=== PATIENT | female | born 1965 | race American Indian/Alaskan Native ===

== ENCOUNTER 2019-04-14 01:55 | Emergency (ER) | payer SELFPAY ==
--- NOTE | 2019-04-14 02:41 | XRay Report ---
RIGHT HIP 3 VIEWS INDICATION / CLINICAL INFORMATION: Right hip pain; twisted body/hips in attempt to not fall. COMPARISON: None available. FINDINGS: BONES / JOINT(S): The hip and SI joint spaces are well-maintained. There is no evidence of fracture o r dislocation. SOFT TISSUES: No significant abnormality. ADDITIONAL FINDINGS: None. IMPRESSION: No acute abnormality. Signer Name: Alessandro Newman MD Signed: 04/14/2019 2:37 AM Workstation Name: [id number]
--- NOTE | 2019-04-14 05:12 | Emergency Department Report ---
ED Lower Extremity HPI - General Chief Complaint: Extremity Injury, Lower Stated Complaint: RIGHT LEG PAIN Time Seen by Provider: 04/14/19 03:56 Source: patient Mode of arrival: Wheelchair Limitations: No Limitations - History of Present Illness Initial Comments: 53-year-old -[place] female presents to the emergency room complaining of right hip pain since Friday. Patient states that when she stood up while at the movie theater on Friday she twisted and had a near fall but was able to catch herself. Patient said at that time she twisted her right leg and heard a pop. Patient reports that she was able to ambulate but has gotten worse. Patient reports she has taken [id number] Tylenol which she reports has not helped much. Patient has no kidney disease no hypertension or diabetes. Has an allergy to penicillin. MD Complaint: hip injury Onset/Timin -: days(s) Injury: Hip: Right (twisted and heard something pop) Type of Injury: hyperflexion Place: street/outdoors (movie) Severity scale (0 -10): 10 Improves With: nothing Worsens With: weight bearing, movement Context: other (twisted) Associated Symptoms: snap/pop sensation - Related Data Previous Rx's Medication Instructions Recorded Last Taken Type Ibuprofen [Motrin 600 MG tab] 600 mg PO Q8H PRN #30 tablet 04/14/19 Unknown Rx traMADol [Ultram 50 MG tab] 50 mg PO Q6HR PRN #12 tablet 04/14/19 Unknown Rx Allergies Allergy/AdvReac Type Severity Reaction Status Date / Time Penicillins Allergy Hives Verified 04/14/19 02:01 ED Review of Systems ROS: Stated complaint: RIGHT LEG PAIN Other details as noted in HPI Comment: All other systems reviewed and negative ED Past Medical Hx - Past Medical History Previous Medical History?: No - Surgical History Past Surgical History?: Yes Hx Cholecystectomy: Yes - Social History Smoking Status: Never Smoker Substance Use Type: None - Medications Home Medications: Home Medications Medication Instructions Recorded Confirmed Last Taken Type Ibuprofen [Motrin 600 MG tab] 600 mg PO Q8H PRN #30 tablet 04/14/19 Unknown Rx traMADol [Ultram 50 MG tab] 50 mg PO Q6HR PRN #12 tablet 04/14/19 Unknown Rx ED Physical Exam - General Limitations: No Limitations General appearance: alert, in no apparent distress - Head Head exam: Present: atraumatic, normocephalic - Eye Eye exam: Present: normal appearance - ENT ENT exam: Present: mucous membranes moist - Expanded Lower Extremity Exam Right Hip exam: Absent: tenderness, swelling, laceration, ecchymosis, deformity, shortening, pelvic stability Upper Leg exam: Present: normal inspection, full ROM. Absent: tenderness, swelling Knee exam: Present: normal inspection, full ROM. Absent: tenderness Ankle exam: Present: swelling Foot/Toe exam: Present: normal inspection Neuro vascular tendon exam: Present: no vascular compromise - Back Exam Back exam: Present: normal inspection - Neurological Exam Neurological exam: Present: alert, oriented X3 - Psychiatric Psychiatric exam: Present: normal affect, normal mood ED Course Vital Signs 04/14/19 04/14/19 01:59 06:05 Temperature 98.0 F Pulse Rate 78 Respiratory 18 16 Rate Blood Pressure 146/86 O2 Sat by Pulse 100 Oximetry ED Lower Extremity MDM - Radiology Data Radiology results: report reviewed Patient: DAYDAY LACY MR#: [id number] : 1965 Acct:[id number] Age/Sex: 53 / F ADM Date: 04/14/19 Loc: ED Attending Dr: Ordering Physician: BETTE MARLEY MD Date of Service: 04/14/19 Procedure(s): XR hip 2-3V RT Accession Number(s): [id number] cc: ED MD AYAKA Fluoro Time In Minutes: RIGHT HIP 3 VIEWS INDICATION / CLINICAL INFORMATION: Right hip pain; twisted body/hips in attempt to not fall. COMPARISON: None available. FINDINGS: BONES / JOINT(S): The hip and SI joint spaces are well-maintained. There is no evidence of fracture or dislocation. SOFT TISSUES: No significant abnormality. ADDITIONAL FINDINGS: None. IMPRESSION: No acute abnormality. Signer Name: Frandy Newman MD Signed: 04/14/2019 2:37 AM Workstation Name: [id number] Transcribed By: RT Dictated By: Frandy Newman MD Electronically Authenticated By: Frandy Newman MD Signed Date/Time: 04/14/19236 DD/ 5 TD/TT: - Medical Decision Making 53-year-old -[place] female presents to the emergency room complaining of right hip pain since Friday. Patient states that when she stood up while at the movie theater on Friday she twisted and had a near fall but was able to catch herself. Patient said at that time she twisted her right leg and heard a pop. Patient reports that she was able to ambulate but has gotten worse. Patient reports she has taken [id number] Tylenol which she reports has not helped much. Patient has no kidney disease no hypertension or diabetes. Has an allergy to penicillin. X-ray of right hip shows no acute abnormalities. Patient was given a Toradol injection of 30 mg. Patient will be discharged home on crutches and referral to orthopedics for further evaluation and follow-up. Critical care attestation.: If time is entered above; I have spent that time in minutes in the direct care of this critically ill patient, excluding procedure time. ED Disposition Clinical Impression: Hip pain, right Disposition: DC-01 TO HOME OR SELFCARE Is pt being admited?: No Does the pt Need Aspirin: No Condition: Stable Instructions: Arthralgia (ED) Additional Instructions: Please take pain medication as prescribed. Please use crutches to help with ambulation. It is very important for you to follow up with orthopedic provider I have listed several below for your convenience. Prescriptions: Ibuprofen [Motrin 600 MG tab] 600 mg PO Q8H PRN #30 tablet PRN Reason: Pain traMADol [Ultram 50 MG tab] 50 mg PO Q6HR PRN #12 tablet PRN Reason: Pain Referrals: FRANDY LONGOIRA MD [Staff Physician] - 3-5 Days REYNALDO ROWLAND MD [Staff Physician] - 3-5 Days LAYA GARCIA MD [Staff Physician] - 3-5 Days Forms: Work/School Release Form(ED)
[2019-04-14] MEDS ORDERED: TORADOL IM ONE (05:43)
[2019-04-14 06:51] VITALS: BP 127/74
== END 2019-04-14 06:30 | disposition home or self-care (01) ==
LOC: ED 01:55
DX: M25.551 Pain in right hip (principal); Z88.0 Allergy status to penicillin
CPT/HCPCS: 73502; 96372; 99283; J1885